=== PATIENT | female | born 1970 | race Caucasian/White ===

== ENCOUNTER → 2019-01-20 | Outpatient (CLI) | payer OTHER ==
[~2019-01-20] MED LIST: ATENOLOL 25 MG25 M1 PO; AYGESTIN PO; CLARITIN10 MG PO; EFFEXOR XR150 MG PO; EFFEXOR XR37.5 MG PO; FERROUS GLUCON240 MG PO; HYDROCHLOROTH12.5 MG PO; PEPCID40 MG PO; PREDNISONE 10 M10 MG PO; VENLAFAXIN75 MG/1 T2 PO; ZOCOR 20 MG TAB20 M1 PO; ZOFRAN4 MG PO; [UNRECOGNIZED DRUG - OTHER] PO
== END ==
LOC: MRI 08:37
DX: M71.22 Synovial cyst of popliteal space [Baker], left knee (principal); R60.0 Localized edema; W19.XXXA Unspecified fall, initial encounter

== ENCOUNTER → 2020-04-19 | Outpatient (CLI) | payer OTHER | LOC: LAB 09:13 | PROVIDERS: ATTEND Nurse Practitioner | DX: R05 Cough (principal); Z20.828 Contact with and (suspected) exposure to other viral communicable diseases ==